=== PATIENT | male | born 1940 | race Caucasian/White ===

== ENCOUNTER 2016-12-17 11:16 | Outpatient (CLI) | payer MEDICARE, OTHER ==
--- NOTE | 2016-12-17 17:23 | Diagnostic Imaging Report ---
[facility] [address] [facility].[address] [address] Report Submission Date: Dec 17, 2016 2:52:11 PM DIRECTOR OF OUTPATIENT SERVICES Patient Study Name: KIRTI KOO Date: Dec 17, 2016 11:44:49 AM DIRECTOR OF OUTPATIENT SERVICES Modality Type: CR Gender: M Description: CHEST : 42 Institution: [facility] Physician: EMILIANO JOHNSON Chest - two views Clinical history: Cough for 1 week. Emphysema. Findings: Examination of the chest in PA and lateral views with comparison to examination of 10/17/2015 demonstrates lungs to be hyperinflated with diminished lung markings in the upper lung zones consistent with changes of emphysema. Cardiovascular and mediastinal silhouettes are stable. The aorta is atherosclerotic. There are chronic-appearing interstitial changes in the lung bases. Impression: 1. No significant change. 2. Emphysema. 3. Chronic-appearing interstitial changes in the bases. Electronically signed on Dec 17, 2016 2:52:11 PM DIRECTOR OF OUTPATIENT SERVICES by: Jose Ramon MONACO
== END 2016-12-17 11:17 ==
LOC: RAD 11:16
PROVIDERS: ATTEND Physician Assistant
DX: J43.1 Panlobular emphysema (principal)
CPT/HCPCS: 71020

== ENCOUNTER 2017-07-02 08:15 | Outpatient (CLI) | payer MEDICARE, OTHER ==
[2017-07-02 09:24] LABS: eGFR (African) > 60; eGFR (Non-African) > 60
== END 2017-07-02 08:16 ==
LOC: LAB 08:15
PROVIDERS: ATTEND Family Medicine
DX: E78.2 Mixed hyperlipidemia (principal); E03.9 Hypothyroidism, unspecified
CPT/HCPCS: 36415; 80053; 80061; 84443

== ENCOUNTER 2017-07-22 11:23 | Outpatient (CLI) | payer MEDICARE, OTHER ==
--- NOTE | 2017-07-22 14:24 | Diagnostic Imaging Report ---
MONISHA ALVAREZ [facility] [address] [facility] [address], [place]. [address] Report Submission Date: Jul 22, 2017 12:12:40 PM CDT Patient Study Name: KIRTI KOO Date: Jul 22, 2017 11:45:27 AM CDT Modality Type: CR Gender: M Description: CHEST : 42 Institution: [facility] Physician: MONISHA ALVAREZ Examination: PA and lateral chest. History: Evaluate lung chinchilla. Comparison exam: 17 December 2016 Findings: PA lateral chest demonstrate a normal cardiac and mediastinal silhouette. Vascular calcifications involving the aortic arch. Stable lung base parenchymal scarring. No focal infiltrate. No blunting of the costophrenic margins. Osseous structures are appropriate for age. Impression: Stable chronic changes. No acute pulmonary process. Electronically signed on Jul 22, 2017 12:12:40 PM CDT by: Zach MONACO
== END 2017-07-22 11:24 ==
LOC: RAD 11:23 → SUPCPDRO 11:23 → RAD 11:24
PROVIDERS: ATTEND Family Medicine
DX: R05 Cough (principal)
CPT/HCPCS: 71020

== ENCOUNTER 2018-09-15 13:23 | Outpatient (CLI) | payer MEDICARE, OTHER ==
[2018-09-15 13:55] LABS: eGFR (Non-African) > 60
== END 2018-09-15 13:24 ==
LOC: LAB 13:23
PROVIDERS: ATTEND Physician Assistant
DX: E78.5 Hyperlipidemia, unspecified (principal); E03.9 Hypothyroidism, unspecified
CPT/HCPCS: 36415; 80053; 80061; 84443

== ENCOUNTER 2019-03-02 13:07 | Outpatient (CLI) | payer MEDICARE, OTHER ==
[2019-03-02 13:25] LABS: MEAN CORPUSCULAR HEMOGLOBIN 28.2 pg (28.0-34.0)
[2019-03-02 13:26] LABS: BASOPHILS % 0.6 % (0.0-1.5); EOSINOPHILS % 4.4 % (0.0-6.8); MONOCYTES % 7.1 % (0.0-11.0); NEUTROPHILS # 5.3 # k/uL (1.4-7.7)
[2019-03-02 13:54] LABS: APPEARANCE,URINE CLEAR (CLEAR); COLOR,URINE YELLOW (YELLOW); OCCULT BLOOD,URINE NEGATIVE (NEGATIVE); PH URINE 6.5 (5.0 - 8.0); UROBILINOGEN URINE 0.2 Eu (0.2-1.0)
== END 2019-03-02 13:10 ==
LOC: LAB 13:07
PROVIDERS: ATTEND Family Medicine
DX: D72.829 Elevated white blood cell count, unspecified (principal); R31.0 Gross hematuria
CPT/HCPCS: 36415; 81002; 85025

== ENCOUNTER 2019-09-23 11:12 | Outpatient (CLI) | payer MEDICARE, OTHER | END 2019-09-23 11:17 | LOC: LAB 11:12 | PROVIDERS: ATTEND Family Medicine | DX: E03.9 Hypothyroidism, unspecified (principal) | CPT/HCPCS: 36415; 84443 ==

== ENCOUNTER 2019-10-21 14:03 | Outpatient (CLI) | payer MEDICARE, OTHER ==
--- NOTE | 2019-10-21 22:02 | Diagnostic Imaging Report ---
PATIENT MR#: [id number] PATIENT PATIENT NAME: KIRTI KOO DATE OF : 1940 REFERRING PHYSICIAN: Esha Schneider EXAM DATE: 10/21/2019 ACCESSION NUMBER: [id number] EXAM DESCRIPTION: CHEST 2VIEW HISTORY: COUGH X2 WEEKS, HX COPD. COMPARISON: July 22, 2017. CHEST RADIOGRAPH, FRONTAL AND LATERAL: Upper mediastinum: Not widened. Heart: No cardiomegaly. Lungs: Stable appearance of bilateral lung base fibrotic changes. No lobar infiltrate, pulmonary sofy a, pneumothorax or significant effusion. Skeleton: Stable appearance of 9 mm density superimposed over the left 6th posterior rib, likely bone island given stability. IMPRESSION: Stable appearance of bilateral lung base fibrosis. Read by: Dr. Brandan Alegria Transcribed by: Brandan Alegria Transcribed Date: 10/21/2019 10:01:28 PM Electronically signed by: Dr. Brandan Alegria Date signed: 10/21/2019 10:01:28 PM
== END 2019-10-21 14:13 ==
LOC: RAD 14:03
PROVIDERS: ATTEND Family Medicine
DX: R05 Cough (principal)